=== PATIENT | female | born 1960 | race Caucasian/White ===

== ENCOUNTER 2017-03-06 20:13 | Emergency (ER) | payer OTHER ==
--- NOTE | 2017-03-06 20:41 | EDM.PDOC ---
ED HPI GENERAL MEDICAL PROBLEM - General Chief Complaint: Lower Extremity Injury/Pain Stated Complaint: PAIN ANKLE Time Seen by Provider: 03/06/17 20:38 Source of Information: Reports: Patient History Limitations: Reports: No Limitations - History of Present Illness INITIAL COMMENTS - FREE TEXT/NARRATIVE: HISTORY AND PHYSICAL: []57-year-old female presenting with injury to her left foot History of Present Illness: []She had on platform shoes and missed a step twisting her foot falling She now has pain across the dorsum of her left foot Review of Systems: As per history of present illness and below otherwise all systems reviewed and negative. Past medical history: As per history of present illness and as reviewed below otherwise noncontributory. Surgical history: As per history of present illness and as reviewed below otherwise noncontributory. Social history: No reported history of drug or alcohol abuse. Family history: As per history of present illness and as reviewed below otherwise noncontributory. Physical exam: Patient is alert and oriented has good affect speaking in full sentences HEENT: Atraumatic, normocehpalic, pupils reactive, negative for conjunctival pallor or scleral icterus, mucous membranes moist, throat clear, neck supple, nontender, trachea midline. Lungs: Clear to auscultation, breath sounds equal bilaterally, chest non tender. Heart: S1S2, regular, negative for clicks, rubs, or JVD. Extremities: Mild edema noted to the dorsum of left foot she does wiggle her toes and has good cap refill less than 2 seconds, sensation is intact pedal pulses are palpable, negative for cords or calf pain. Neurovascular unremarkable. Neuro: Awake, alert, oriented. Cranial nerves II through XII unremarkable. Cerebellum unremarkable. Motor and sensory unremarkable throughout. Exam nonfocal. Diagnostics: [X-ray left foot negative for fracture or dislocation] Therapeutics: [Ice to injury] Impression: [Foot sprain] Plan: [Elevate and ice Use shoes that have support] Definitive disposition and diagnosis as appropriate pending reevaluation and review of above. Onset: Today, Sudden Duration: Minutes:, Getting Worse Location: Reports: Lower Extremity, Left Quality: Reports: Ache Severity: Moderate Improves with: Reports: Cold Therapy Worsens with: Reports: Movement Associated Symptoms: Reports: No Other Symptoms Left Ankle Pain Score (Numeric/FACES): 7 - Related Data Allergies Allergy/AdvReac Type Severity Reaction Status Date / Time No Known Allergies Allergy Verified 03/06/17 20:26 Home Meds: Home Meds . 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 ED EXAM, GENERAL - Physical Exam Exam: See Below (See dictation) Course - Vital Signs Last Recorded V/S: Last Vital Signs Temp 36.6 C 03/06/17 20:27 Pulse 104 H 03/06/17 20:27 Resp 18 03/06/17 20:27 BP 130/68 03/06/17 20:27 Pulse Ox 97 03/06/17 20:27 - Orders/Labs/Meds Orders: Active Orders 24 hr Category Date Time Status Splinting [RC] ASDIRECTED Care 03/06/17 21:05 Active Foot 2V Lt [CR] Stat Exams 03/06/17 20:38 Taken Departure - Departure Time of Disposition: 21:12 Disposition: Home, Self-Care 01 Condition: Good Clinical Impression: Right foot sprain Qualifiers: Encounter type: initial encounter Qualified Code(s): S93.601A - Unspecified sprain of right foot, initial encounter - Discharge Information Instructions: Foot Sprain Forms: ED Department Discharge Additional Instructions: The following information is given to patients seen in the emergency department who are being discharged to home. This information is to outline your options for follow-up care. We provide all patients seen in our emergency department with a follow-up referral. The need for follow-up, as well as the timing and circumstances, are variable depending upon the specifics of your emergency department visit. If you don't have a primary care physician on staff, we will provide you with a referral. We always advise you to contact your personal physician following an emergency department visit to inform them of the circumstance of the visit and for follow-up with them and/or the need for any referrals to a consulting specialist. The emergency department will also refer you to a specialist when appropriate. This referral assures that you have the opportunity for followup care with a specialist. All of these measure are taken in an effort to provide you with optimal care, which includes your followup. Under all circumstances we always encourage you to contact your private physician who remains a resource for coordinating your care. When calling for followup care, please make the office aware that this follow-up is from your recent emergency room visit. If for any reason you are refused follow-up, please contact the [facility] emergency department at and asked to speak to the emergency department charge nurse. Elevate and ice Ibuprofen for pain and as anti-inflammatory Follow-up with primary care provider or special education itinerant teacher - My Orders Last 24 Hours: My Active Orders 03/06/17 20:38 Foot 2V Lt [CR] Stat 03/06/17 21:05 Splinting [RC] ASDIRECTED - Assessment/Plan Last 24 Hours: My Active Orders 03/06/17 20:38 Foot 2V Lt [CR] Stat 03/06/17 21:05 Splinting [RC] ASDIRECTED
[2017-03-06 21:33] VITALS: BP 127/64
--- NOTE | 2017-03-07 09:41 | CR ---
EXAM DATE: 03/06/17 PATIENT'S AGE: 57 Patient: FANY DE SANTIAGO Facility: [place], [place] Site . Site : [id number] Study: XRay Extremity foot [id number]/26/2017 8:58:55 PM Ordering Physician: Doctor Yan Final Report: Indication: Injury Technique: Two views left foot Comparison: None Findings: Bones: Alignment is normal. No fractures or bone lesions. There are small inferior and posterior calcaneal enthesophytes. Joint spaces: Unremarkable. Soft tissues: Unremarkable. Impression: Negative. Dictated by Eliana Edwards MD @ Mar 06 2017 9:08PM (Electronic Signature) Report Signed by Proxy. JUAN
== END 2017-03-06 21:33 | disposition home or self-care (01) ==
LOC: MW.ED 20:13
DX: S93.602A Unspecified sprain of left foot, initial encounter (principal); Z98.890 Other specified postprocedural states; W19.XXXA Unspecified fall, initial encounter; X50.1XXA Overexertion from prolonged static or awkward postures, initial encounter
CPT/HCPCS: 73620-26-LT; 73620-LT; 99282; 99283

== ENCOUNTER 2017-05-11 12:57 | Emergency (ER) | payer OTHER ==
[2017-05-11 13:27] VITALS: BP 127/70
[2017-05-11] MEDS ORDERED: Albuterol/Ipratropium 3.0-0.5 MG/3 ML Neb Soln NEB ONE (13:38)
[2017-05-11] MEDS ORDERED: Ketorolac 60 MG/2 ML SDV IM ONE (13:39)
--- NOTE | 2017-05-11 13:43 | EDM.PDOC ---
ED HPI GENERAL MEDICAL PROBLEM - General Chief Complaint: ENT Problem Stated Complaint: BODYACHES Time Seen by Provider: 05/11/17 13:10 Source of Information: Reports: Patient History Limitations: Reports: No Limitations - History of Present Illness INITIAL COMMENTS - FREE TEXT/NARRATIVE: HISTORY AND PHYSICAL: History of present illness: Patient is a 57-year-old female who presents to the emergency room today with complaints of sore throat, body aches, coughing, chest congestion, and chills. She reports that she's had these symptoms since Saturday and have progressively gotten worse. Reports she has taken [id number] Aleve which seems to alleviate some of her symptoms but they quickly returned on some medications have "worn off". States she has some chest congestion when she coughs causing an ache in her chest. Denies any abdominal pain, nausea, vomiting or diarrhea. Denies any fevers although a few days ago reports she felt like she had a fever she had chills. Review of systems: As per history of present illness and below otherwise all systems reviewed and negative. Past medical history: As per history of present illness and as reviewed below otherwise noncontributory. Surgical history: As per history of present illness and as reviewed below otherwise noncontributory. Social history: No reported history of drug or alcohol abuse. Family history: As per history of present illness and as reviewed below otherwise noncontributory. Physical exam: HEENT: Atraumatic, normocephalic, pupils reactive, negative for conjunctival pallor or scleral icterus, mucous membranes moist, throat clear, neck supple, nontender, trachea midline. Lungs: Diminished lung sounds to posterior bases bilaterally otherwise clear, breath sounds equal bilaterally, chest nontender. Heart: S1S2, regular rate and rhythm Abdomen: Soft, obese, nondistended, nontender. Negative for masses. Negative for costovertebral tenderness. Pelvis: Stable nontender. Genitourinary: Deferred. Rectal: Deferred. Extremities: Atraumatic, negative for cords or calf pain. Neurovascular unremarkable. Neuro: Awake, alert, oriented. Cranial nerves II through XII unremarkable. Cerebellum unremarkable. Motor and sensory unremarkable throughout. Exam nonfocal. 1400- Patient received her EKG and DuoNeb. She reportedly told the nurse that she was unhappy that she was not "just receiving antibiotics for my virus". She declined the Toradol and CXR. Explained to patient that I needed to know what I was treating and am unable to give her antibiotics for a suspected viral illness. Patient reports that "there is no urgent care here and all he wants antibiotics". Explained to the patient the need for an x-ray to support the need for antibiotics, patient states she wants to sign out AGAINST MEDICAL ADVICE. I did offer to give her some steroids to help with her coughing. Patient declined. Encourage the patient to follow-up with her primary care provider in the next 1-2 days. Patient voices understanding. Patient reports that after symptoms worsen she will return to the emergency room. Diagnostics: 2 view chest x-ray, EKG, Therapeutics: IM Toradol, Duo Neb Impression: Viral illness Plan: AMA Definitive disposition and diagnosis as appropriate pending reevaluation and review of above. 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 ED EXAM, ENT - Physical Exam Exam: See Below (See dictation) Course - Vital Signs Last Recorded V/S: Last Vital Signs Temp 37.1 C 05/11/17 13:24 Pulse 55 L 05/11/17 13:24 Resp 18 05/11/17 13:24 BP 127/70 05/11/17 13:24 Pulse Ox 96 05/11/17 13:24 - Orders/Labs/Meds Orders: Active Orders 24 hr Category Date Time Status EKG Documentation Completion [RC] STAT Care 05/11/17 13:39 Active RT Aerosol Therapy [RC] ASDIRECTED Care 05/11/17 13:39 Active Meds: Medications Discontinued Medications Generic Name Dose Route Start Last Admin Trade Name Freq PRN Reason Stop Dose Admin Albuterol/Ipratropium 3 ml 05/11/17 13:38 05/11/17 13:50 Duoneb 3.0-0.5 Mg/3 Ml NEB 05/11/17 13:39 3 ml ONETIME ONE Administration Ketorolac Tromethamine 60 mg 05/11/17 13:39 Toradol IM 05/11/17 13:40 ONETIME ONE Departure - Departure Time of Disposition: 14:21 Disposition: Against Medical Advice 07 Clinical Impression: Viral illness - Discharge Information Referrals: PCP,None [Primary Care Provider] - Forms: ED Department Discharge Additional Instructions: My general discharge The following information is given to patients seen in the emergency department who are being discharged to home. This information is to outline your options for follow-up care. We provide all patients seen in our emergency department with a follow-up referral. The need for follow-up, as well as the timing and circumstances, are variable depending upon the specifics of your emergency department visit. If you don't have a primary care physician on staff, we will provide you with a referral. We always advise you to contact your personal physician following an emergency department visit to inform them of the circumstance of the visit and for follow-up with them and/or the need for any referrals to a consulting specialist. The emergency department will also refer you to a specialist when appropriate. This referral assures that you have the opportunity for follow-up care with a specialist. All of these measure are taken in an effort to provide you with optimal care, which includes your follow-up. Under all circumstances we always encourage you to contact your private physician who remains a resource for coordinating your care. When calling for follow-up care, please make the office aware that this follow-up is from your recent emergency room visit. If for any reason you are refused follow-up, please contact the [facility] Emergency Department at and asked to speak to the emergency department charge nurse. Patient signed out AMA Please see dictation - My Orders Last 24 Hours: My Active Orders 05/11/17 13:39 EKG Documentation Completion [RC] STAT RT Aerosol Therapy [RC] ASDIRECTED - Assessment/Plan Last 24 Hours: My Active Orders 05/11/17 13:39 EKG Documentation Completion [RC] STAT RT Aerosol Therapy [RC] ASDIRECTED
== END 2017-05-11 14:22 | disposition left against medical advice (07) ==
LOC: MW.ED 12:57
DX: B34.9 Viral infection, unspecified (principal); I10 Essential (primary) hypertension; Z79.899 Other long term (current) drug therapy
CPT/HCPCS: 93005; 94640; 99283; 99283-25

== ENCOUNTER 2019-09-21 08:39 | Day surgery (SDC) | payer OTHER ==
[~2019-09-21 08:39] MED LIST: Lactated Ringers 1,000 ML IV SCH
--- NOTE | 2019-09-21 09:10 | PCM.PREANE ---
Preanesthetic Assessment - Anesthesia/Transfusion/Family Hx Anesthesia History: Prior Anesthesia Without Reaction Family History of Anesthesia Reaction: No Transfusion History: No Prior Transfusion(s) Intubation History: Unknown - Review of Systems General: No Symptoms Pulmonary: No Symptoms Cardiovascular: No Symptoms Gastrointestinal: No Symptoms Neurological: No Symptoms Other: Reports: None - Physical Assessment Height: 5 ft 2 in Weight: 106.594 kg ASA Class: 2 Mental Status: Alert & Oriented x3 Airway Class: Mallampati = 2 Dentition: Reports: Normal Dentition, Bridge (fixed lower right) Thyro-Mental Finger Breadths: 3 Mouth Opening Finger Breadths: 3 ROM/Head Extension: Full Lungs: Clear to Auscultation, Normal Respiratory Effort Cardiovascular: Regular Rate, Regular Rhythm - Allergies Allergies/Adverse Reactions: Allergies Allergy/AdvReac Type Severity Reaction Status Date / Time No Known Allergies Allergy Verified 09/15/19 07:56 - Blood Blood Available: No - Anesthesia Plan Pre-Op Medication Ordered: None - Acknowledgements Anesthesia Type Planned: MAC Pt an Appropriate Candidate for the Planned Anesthesia: Yes Alternatives and Risks of Anesthesia Discussed w Pt/Guardian: Yes Pt/Guardian Understands and Agrees with Anesthesia Plan: Yes PreAnesthesia Questionnaire - Past Health History Medical/Surgical History: Denies Medical/Surgical History HEENT History: Reports: None Cardiovascular History: Reports: Hypertension Respiratory History: Reports: None Gastrointestinal History: Reports: None Genitourinary History: Reports: None 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: Polycystic Ovaries, Musculoskeletal History: Reports: Arthritis, Fracture, Fibromyalgia Neurological History: Reports: None Psychiatric History: Reports: Anxiety, Depression Endocrine/Metabolic History: Reports: Obesity/BMI 30+ (BMI 43.0) Hematologic History: Reports: None Immunologic History: Reports: None Oncologic (Cancer) History: Reports: None Dermatologic History: Reports: None - Past Surgical History Head Surgeries/Procedures: Reports: None HEENT Surgical History: Reports: Naso-Sinus Surgery Cardiovascular Surgical History: Reports: None Respiratory Surgical History: Reports: None GI Surgical History: Reports: Bariatric Procedure Other GI Surgeries/Procedures: hx gastric sleeve Female Surgical History: Reports: Breast Reduction, Section, D&C, Oophorectomy, Tubal Ligation, Other (See Below) Other Female Surgeries/Procedures: hx laparoscopy for ovarian cystectomy and oophorectomy Endocrine Surgical History: Reports: None Neurological Surgical History: Reports: None Musculoskeletal Surgical History: Reports: Other (See Below) Other Musculoskeletal Surgeries/Procedures:: Foot Surgery Oncologic Surgical History: Reports: None Dermatological Surgical History: Reports: None - SUBSTANCE USE Smoking Status *Q: Never Smoker - HOME MEDS Home Medications: Home Meds Lisinopril 20 mg PO DAILY 05/11/17 [History] Citalopram Hydrobromide [Celexa] 40 mg PO DAILY 09/15/19 [History] Spironolactone 3 tab PO DAILY 09/15/19 [History] buPROPion HCL [Bupropion HCl Sr] 150 mg PO DAILY 09/15/19 [History] Lysine 1,000 mg PO DAILY 09/17/19 [History] - CURRENT (IN HOUSE) MEDS Current Meds: Current Medications Lactated Ringer's (Ringers, Lactated) 1,000 mls @ 125 mls/hr IV ASDIRECTED SPENCER
[2019-09-21] MEDS ORDERED: Propofol 200 MG/20 ML SDV ONE ×2 (09:45→11:31)
[2019-09-21] MEDS ORDERED: fentaNYL 100 MCG/2 ML SDV ONE (09:45)
--- NOTE | 2019-09-21 11:55 | PCM.OPNOTE ---
- General Post-Op/Procedure Note Date of Surgery/Procedure: 09/21/19 Operative Procedure(s): Colonoscopy with cold ascending colon and sigmoid polypectomies Pre Op Diagnosis: Personal history of colon polyps. Family history of colon polyps. Desire for colorectal cancer screening. Post-Op Diagnosis: Ascending colon and sigmoid polyps. Sigmoid diverticulosis. Anesthesia Technique: MAC (ASA II) Primary Surgeon: Chad Sanabria Condition: Good Free Text/Narrative:: DICTATION [id number] CPT CODE 34095
[2019-09-21] MEDS ORDERED: Lactated Ringers 1,000 ML IV SCH (12:00)
[2019-09-21 12:05] VITALS: BP 126/67; PULSE 97
--- NOTE | 2019-09-21 13:04 | PCM.POSTAN ---
POST ANESTHESIA ASSESSMENT - MENTAL STATUS Mental Status: Alert, Oriented - VITAL SIGNS Vital Signs: Last Vital Signs Temp 36.2 C 09/21/19 11:50 Pulse 97 09/21/19 11:50 Resp 12 09/21/19 11:50 BP 126/67 09/21/19 11:50 Pulse Ox 94 L 09/21/19 11:50 - RESPIRATORY Respiratory Status: Respiratory Rate WNL, Airway Patent, O2 Saturation Stable - CARDIOVASCULAR CV Status: Pulse Rate WNL, Blood Pressure Stable - GASTROINTESTINAL GI Status: No Symptoms - PAIN Pain Score: 0 - POST OP HYDRATION Hydration Status: Adequate & Stable - OBSERVATIONS Free Text/Narrative:: No anesthesia problems, patient skipped recovery room stage of postoperative care.
--- NOTE | 2019-09-21 13:05 | PCM48HPAN ---
Post Anesthesia Note - EVALUATION WITHIN 48HRS OF ANESTHETIC Vital Signs in Normal Range: Yes Patient Participated in Evaluation: Yes Respiratory Function Stable: Yes Airway Patent: Yes Cardiovascular Function Stable: Yes Hydration Status Stable: Yes Pain Control Satisfactory: Yes Nausea and Vomiting Control Satisfactory: Yes Mental Status Recovered: Yes Vital Signs: Last Vital Signs Temp 36.2 C 09/21/19 11:50 Pulse 97 09/21/19 11:50 Resp 12 09/21/19 11:50 BP 126/67 09/21/19 11:50 Pulse Ox 94 L 09/21/19 11:50 - COMMENTS/OBSERVATIONS Free Text/Narrative:: No anesthesia problems
--- NOTE | 2019-09-21 16:20 | OR ---
SURGEON: Chad Sanabria M.D. DATE OF PROCEDURE: 09/21/2019 OPERATION PERFORMED: Colonoscopy with cold sigmoid and ascending colon polypectomy. PRIMARY SURGEON: Chad Sanabria MD. ANESTHESIA: MAC. ASA CLASSIFICATION: II. PREOPERATIVE DIAGNOSES: 1. Personal history of colon polyps. 2. Family history of colon polyps. POSTOPERATIVE DIAGNOSES: 1. Sigmoid and ascending colon polyps. 2. Sigmoid diverticulosis. DESCRIPTION OF PROCEDURE: The patient was taken to the endoscopy room and positioned on the endoscopy table in the left lateral decubitus position. Time-out was called for appropriate identification of the patient and procedure. Monitored anesthesia care was provided. The colonoscope was inserted into the rectum and advanced with minimal difficulty to the cecum. The cecum was identified by internal landmarks and external pressure. One small polyp was encountered in the ascending colon and this was removed with the cold biopsy forceps. The remainder of the ascending colon, hepatic flexure, transverse colon, splenic flexure, and descending colon showed no tumors, polyps, diverticula, or angiodysplastic changes. It should be noted that the colonoscope was retroflexed in the cecum to visualize the ascending colon before withdrawal. The sigmoid colon itself demonstrated moderate diverticular change. No stricture, spasm, or bleeding was noted. One small polyp was encountered in the sigmoid colon and removed with the cold biopsy forceps. The colonoscope was then withdrawn to the rectum and retroflexed to visualize the anal orifice from above. Again, no tumors or polyps were seen and there were no acute hemorrhoidal changes. The colonoscope was then straightened, the rectum aspirated, and the colonoscope removed. The patient tolerated the procedure well and was taken to recovery room in stable condition. VY / LACHELLE /[id number]
== END 2019-09-21 12:21 | disposition home or self-care (01) ==
LOC: MW.SDS 08:39
PROVIDERS: ATTEND Surgery
DX: Z12.11 Encounter for screening for malignant neoplasm of colon (principal); D12.2 Benign neoplasm of ascending colon; K57.30 Diverticulosis of large intestine without perforation or abscess without bleeding; K63.5 Polyp of colon; I10 Essential (primary) hypertension; F41.8 Other specified anxiety disorders; M19.90 Unspecified osteoarthritis, unspecified site; E66.9 Obesity, unspecified; Z86.010 Personal history of colon polyps; Z98.84 Bariatric surgery status; Z79.3 Long term (current) use of hormonal contraceptives; Z79.899 Other long term (current) drug therapy; Z83.71 Family history of colonic polyps; Z68.41 Body mass index [BMI] 40.0-44.9, adult
CPT/HCPCS: 45380; J2001; J2704; J3010; J7120; 00812; 88305